=== PATIENT | female | born 1945 | race Caucasian/White ===

== ENCOUNTER 2017-05-09 08:56 | Outpatient (CLI) | payer MEDICARE ==
[2013-07-06 12:05] VITALS: BMI 26.3
[~2017-05-09 08:56] MED LIST: ASPIRIN325 MG PO; GLUCOPHAGE1000 MG PO; GLUCOTROL 5 MG T5 MG PO; LISINOPRIL2.5 MG PO; TOPROL XL25 MG PO; ZOCOR80 MG PO
== END 2017-05-09 11:10 ==
LOC: D.MAMMO 08:56
DX: Z12.31 Encounter for screening mammogram for malignant neoplasm of breast (principal)

== ENCOUNTER 2017-07-17 11:53 | Outpatient (CLI) | payer MEDICARE ==
--- NOTE | ~2017-07-17 | HEMODYNAMI ---
PATIENT:CISCO JEAN MEDICAL RECORD: [id number] : 45 LOCATION:[facility] ADMISSION DATE: 07/17/17 Generatedon:07/17/201714:57 Patient name: CISCO JEAN Patient #: [id number] SSN : : 1945 Date of study: 07/17/2017 Page: Of Hemodynamic Procedure Report Patient Data Patient Demographics Procedure consent was obtained First Name: CISCO Gender: Female Last Name: MIRANDA : 1945 Middle Initial: IRMA Age: 71 year(s) Patient #: [id number] Race: Unknown Additional ID: [id number] Contact details [address]: [address] [place] [address] State: [place] City: [place] Zip code: [address] Past Medical History Allergies: No known allergies Admission Admission Data Admission Date: 07/17/2017 Admission Time: 11:53 Admit Source: Other Lab Results Lab Result Date: 07/17/2017 Lab Result Time: 0:39 Biochemistry Name Units Result Min Max BUN mg/dl 18 --(---*)-- 7 18 Creatinine mg/dl 0.8 --(-*--)-- 0.6 1.3 CBC Name Units Result Min Max Hematocrit % 38.1 *-(----)-- 42 54 Hemoglobin g/dl 12.7 -*(----)-- 13.5 17.5 Procedure Procedure Types Cath Procedure Diagnostic Procedure LHC LHC w/Coronaries w/Grafts Miscellaneous Procedures Moderate Sedation up to 15 minutes Procedure Description Procedure Date Procedure Date: 07/17/2017 Procedure Start Time: 14:34 Procedure End Time: 14:55 Procedure Staff Name Function Isaak Verdin MD Performing Physician Jenifer Grajeda RT Scrub Harvey Balderas RT Monitor Sheela Aragon RN Nurse Meka Matias RT Monitor Procedure Data Cath Procedure Fluoroscopy Diagnostic fluoroscopy Total fluoroscopy Time: 5.2 time: 5.2 min min Diagnostic fluoroscopy Total fluoroscopy dose: 146 dose: 146 mGy mGy Contrast Material Contrast Material Type Amount (ml) Isovue 300 102 Entry Location Entry Primary Successful Side Size Upsize Upsize Entry Closure Succes sful Closure Location (Fr) 1 (Fr) 2 (Fr) Remarks Device Remarks Femoral Right 5 Fr Exoseal artery Estimated blood loss: 10 ml Diagnostic catheters Device Type Used For End Catheter Placement Cordis 5Fr JL 4.0 Procedure Catheter (MP) Cordis 5Fr 3DRC Catheter Procedure (MP) Diagnostic Infinity 5Fr Procedure AR MOD Catheter Diagnostic Infinity 5Fr Procedure AR 2 MOD catheter Diagnostic Infinity 5Fr Procedure IM catheter Cordis 5Fr Pigtail Ventriculography Catheter (MP) Procedure Complications No complications Procedure Medications Medication Administration Route Dosage Oxygen NC 2 l/min Lidocaine 2% added to field 20 Heparin Flush Bag added to field 2 bags (1000units/500ml NS) 0.9% NaCl I.V. 100 ml/hr Versed I.V. 1 mg Fentanyl I.V. 50 mcg Versed I.V. 1 mg Fentanyl I.V. 50 mcg Hemodynamics Rest HGB: 12.7 (g/dl) Heart Rate: 65 (bpm) Pressure Samples Time Site Value (mmHg) Purpose Heart Use Rate(bpm) 14:50 LV 122/1,18 Snapshot 70 14:51 AO 117/53(82) Pullback 72 14:51 LV 121/-4,15 Pullback 72 Gradients Valve Time Site 1 Site 2 Mean SEP/DFP Peak To Heart Use (mmHg) (sec/min) Peak Rate (mmHg) (bpm) Aortic 14:51 LV AO 6 20 4 72 121/-4,15 117/53(82) Calculations Valve P-P Mean Valve Index Valve Source Name Gradient Area Flow (cm2) Aortic 4 6 4 6 Snapshots Pre Cath Intra NCS Post Cath Vital Signs Time Heart Resp SPO2 etCO2 NIBP (mmHg) Rhythm Pain Sedation Rate (ipm) (%) (mmHg) Status Level (bpm) 14:17:12 65 15 100 16.5 153/78(130) NSR 0 (11) 10(A) , No pain 14:21:36 63 17 100 33.9 149/71(127) NSR 0 (11) 10(A) , No pain 14:25:56 62 18 100 29.3 145/71(121) NSR 0 (11) 10(A) , No pain 14:30:08 63 17 98 24.1 125/69(104) NSR 0 (11) 10(A) , No pain 14:34:22 71 16 100 33.1 129/74(110) NSR 0 (11) 10(A) , No pain 14:38:34 66 17 100 42.9 132/67(111) NSR 0 (11) 9(A) , No pain 14:42:54 64 16 100 18 130/64(99) NSR 0 (11) 9(A) , No pain 14:47:12 67 14 100 18 137/67(113) NSR 0 (11) 9(A) , No pain 14:51:26 69 16 99 15 116/62(98) NSR 0 (11) 9(A) , No pain 14:55:43 68 15 100 0 126/60(106) NSR 0 (11) 10(A) , No pain Medications Time Medication Route Dose Verified Delivered Reason Notes Effe ctiveness by by 14:13:07 Oxygen NC 2 Isaak Buffie used for l/min Lambert Aragon RN procedure 14:13:14 Lidocaine 2% added 20ml Isaak Isaak for local to vial Lambert Verdin MD anesthetic field 14:13:21 Heparin Flush added 2 Isaak Isaak used for Bag to bags Lambert Verdin MD procedure (1000units/500ml field NS) 14:13:31 0.9% NaCl I.V. 100 Isaak Buffie Per ml/hr Lambert Aragon RN physician 14:35:00 Versed I.V. 1 mg Isaak Buffie for Lambert Aragon RN sedation 14:35:06 Fentanyl I.V. 50 Isaak Buffie for mcg Lambert Aragon RN sedation 14:41:28 Versed I.V. 1 mg Isaak Buffie for Lambert Aragon RN sedation 14:41:34 Fentanyl I.V. 50 Isaak Buffie for mcg Lambert Aragon RN sedation Procedure Log Time Note 13:52:23 Informed consent obtained and on chart 13:52:45 Admit Source: Other 13:52:47 Diagnostic Cath status Elective 13:52:48 Sheela Aragon RN sent for patient. Start room use. 13:52:49 Time tracking: Regular hours 13:52:54 Plan of Care:Hemodynamics will remain stable., Cardiac rhythm will remain stable., Comfort level will be maintained., Respiratory function will remain adequate., Patient/ family verbilizes understanding of procedure., Procedure tolerated without complication., Recovers from procedure without complications.. 13:55:02 H&P Date Dictated: 06/25/2017 Within 30 days and on chart., H&P Addendum completed by physician on day of procedure. (MUST COMPLETE FOR ALL OUTPATIENTS). 13:57:07 Lab Result : Hemoglobin 12.7 g/dl 13:57:07 Lab Result : Hematocrit 38.1 % 13:57:07 Lab Result : BUN 18 mg/dl 13:57:07 Lab Result : Creatinine 0.8 mg/dl 14:03:19 Patient received from Pre/Post Procedure Room to [facility] 3 Alert and oriented. Tansferred to table in Supine position. 14:03:21 Warm blankets applied, and oleg hugger turned on for patient comfort. 14:03:21 Correct patient and procedure confirmed by team. 14:03:22 ECG and BP/O2 sat monitors applied to patient. 14:03:24 Pre-procedure instructions explained to patient. 14:03:24 Pre-op teaching completed and patient verbalized understanding. 14:03:34 Family in waiting room. 14:03:42 Patient allergic to No known allergies 14:03:44 Is the patient allergic to Iodine/contrast media? No. 14:13:07 Oxygen 2 l/min NC was administered by Sheela Aragon RN; used for procedure; 14:13:14 Lidocaine 2% 20ml vial added to field was administered by Isaak Verdin MD; for local anesthetic; 14:13:21 Heparin Flush Bag (1000units/500ml NS) 2 bags added to field was administered by Isaak Verdin MD; used for procedure; 14:13:31 0.9% NaCl 100 ml/hr I.V. was administered by Sheela Aragon RN; Per physician; 14:15:47 Is patient on blood thinner?No 14:15:49 Patient diabetic? Yes. 14:15:49 If diabetic: On Metformin? Yes 14:15:52 If on Metformin: Last Dose? 07/15/2017 14:15:55 Previous problem with sedation/anesthesia? No ? 14:15:55 Snore? No 14:15:56 Sleep apnea? No 14:15:57 Deviated septum? No 14:15:58 Opens mouth fully? Yes 14:15:58 Sticks out tongue? Yes 14:15:59 Vital chart was started 14:15:59 Airway obstruction? No ? 14:16:05 Dentures? Yes Partial in tight 14:16:08 Pre procedure: right dorsailis pedis pulse 1+ Palpable, but thready & weak; easily obliterated 14:16:10 Patient pain scale 0/10 ?. 14:16:28 IV patent on arrival in left hand with 0.9% NaCl at [facility]. 14:16:30 Lab results completed and on chart. 14:16:33 Right groin area was prepped with chlora-prep and draped in sterile fashion 14:16:34 Alarms reviewed by R. N. 14:16:35 Sharps counted by scrub and verified by R.N. 14:16:37 Use device set Femoral Dx 14:16:38 Tegaderm 4 x 4 opened to sterile field. 14:16:41 Acist Hand Control opened to sterile field. 14:16:41 Acist Manifold opened to sterile field. 14:16:46 Acist Syringe opened to sterile field. 14:16:46 Bag Decanter opened to sterile field. 14:16:47 Medline Cath Pack opened to sterile field. 14:16:47 Terumo 5Fr [place] Sheath opened to sterile field. 14:16:47 [facility] [place] 260cm J .035 wire opened to sterile field. 14:16:49 Diagnostic Infinity 5Fr Multipack catheter opened to sterile field. 14:18:53 Baseline sample Acquired. 14:18:57 Rhythm: sinus rhythm 14:18:58 Full Disclosure recording started 14:21:39 Zero performed for pressure channel P1 14:21:42 Zero performed for pressure channel P1 14:21:45 Zero performed for pressure channel P1 14:21:48 Zero performed for pressure channel P1 14:22:02 Physician arrived 14:22:02 --------ALL STOP TIME OUT------ 14:22:02 Final Timeout: patient, procedure, and site verified with staff and physician. All members of the team are in agreement. 14:22:04 Right groin site verified by team. 14:22:06 Physical assessment completed. ASA score P 2 - A patient with mild systemic disease as per Isaak Verdin MD. 14:22:08 Sedation plan: IV Moderate Sedation Versed, Fentanyl 14:34:05 Procedure started. 14:34:20 Local anesthetic to right femoral artery with Lidocaine 2% by Isaak Verdin MD.INITIAL ACCESS ONLY 14:35:00 Versed 1 mg I.V. was administered by Sheela Aragon RN; for sedation; 14:35:06 Fentanyl 50 mcg I.V. was administered by Sheela Aragon RN; for sedation; 14:36:04 A 5 Fr sheath was inserted into the Right Femoral artery 14:36:52 A Cordis 5Fr JL 4.0 Catheter (MP) was advanced over the wire and used for Procedure. 14:37:26 LCA angiography performed. 14:39:02 Catheter removed. 14:39:17 A Cordis 5Fr 3DRC Catheter (MP) was advanced over the wire and used for Procedure. 14:40:05 RCA angiography performed. 14:40:40 Catheter removed. 14:41:28 Versed 1 mg I.V. was administered by Sheela Aragon RN; for sedation; 14:41:34 Fentanyl 50 mcg I.V. was administered by Sheela Aragon RN; for sedation; 14:42:11 A Diagnostic Infinity 5Fr AR MOD Catheter was advanced over the wire and used for Procedure. 14:42:31 SVG to Diag angiography performed. 14:46:24 Catheter removed. 14:46:34 A Diagnostic Infinity 5Fr AR 2 MOD catheter was advanced over the wire and used for Procedure. 14:46:43 SVG to RCA angiography performed. 14:47:08 Catheter removed. 14:48:08 A Diagnostic Infinity 5Fr IM catheter was advanced over the wire and used for Procedure. 14:48:12 CROWLEY to LAD angiography performed. 14:48:54 Catheter removed. 14:50:17 A Cordis 5Fr Pigtail Catheter (MP) was advanced over the wire and used for Ventriculography. 14:51:13 EF : 50 % 14:51:28 Cordis 5Fr Exoseal opened to sterile field. 14:51:32 Catheter removed. 14:51:47 Sheath removed intact; hemostasis achieved with Exoseal to the Right Femoral artery. 14:51:50 Procedure ended.(Physican Out) 14:52:25 Fluoroscopy time 05.20 minutes. 14:52:31 Fluoroscopy dose: 146 mGy 14:52:31 Flurop Dose total: 146 14:52:35 Contrast amount:Isovue 300 102ml. 14:53:03 Insertion/operative site no bleeding no hematoma. 14:53:06 Post-op/insertion site Right Femoral artery dressed using a 4 x 4 and Tegaderm. 14:53:51 Post right femoral artery:stable 14:53:55 Post Procedure Pulses reassessed and unchanged 14:54:00 Post-procedure physical assessment completed. ASA score P 2 - A patient with mild systemic disease as per Isaak Verdin MD. 14:54:04 Estimated blood loss: 10 ml 14:54:05 Post procedure instruction explained to patient.Patient verbalizes understanding. 14:54:06 Patient needs reinforcement of post procedure teaching. 14:54:17 Procedure type changed to Cath procedure, Diagnostic procedure, LHC, LHC w/Coronaries w/Grafts, Miscellaneous Procedures, Moderate Sedation up to 15 minutes 14:54:18 Procedure and supply charges have been captured, reviewed, submitted and are correct. 14:54:56 Procedure Complication : No complications 14:55:00 Vital chart was stopped 14:55:07 See physician's report for complete and final results. 14:55:09 Report given to Pre/Post Procedure Room. 14:55:15 Patient transfered to Pre/Post Procedure Room with Stretcher. 14:55:17 Procedure ended. 14:55:17 Full Disclosure recording stopped 14:55:21 End room use (Document Last) Device Usage Item Name Manufacture Quantity Catalog Hospital Part Current Minimal Lo t# / Number Charge Number Stock Stock Serial# Code Tegaderm 4 1 [id number] 5 x 4 Acist Hand Acist 1 28174 805684 126224 [id number] 5 Control [employer] Inc Acist Acist 1 06367 881859 654486 759422 5 Manifold [employer] Inc Acist Acist 1 58439 655596 974722 251976 20 Syringe [employer] Inc Bag Microtek 1 2001S 244439 20383 397057 5 [employer] Medline Cardinal 1 [id number] 765449 73201 305387 5 Cath Pack Health Terumo 5Fr Terumo 1 [id number] 082130 728967 225821 [address] [place] [address] [facility] [place] 1 [id number] 140780 048985 461427 30 260cm J .035 wire Diagnostic Cardinal 1 [id number] 876528 46972 615403 30 [facility] 5Fr Multipack catheter Cordis 5Fr Cardinal 1 163255 5 JL 4.0 Health Catheter (MP) Cordis 5Fr Cardinal 1 014667 5 3DRC Health Catheter (MP) Diagnostic Cardinal 1 [id number] 885036 214529 281117 15 [facility] 5Fr AR MOD Catheter Diagnostic Cardinal 1 [id number] 560791 664887 821034 20 [facility] 5Fr AR 2 MOD catheter Diagnostic Cardinal 1 [id number] 754552 957009 730376 5 [facility] 5Fr IM catheter Cordis 5Fr Cardinal 1 [id number] 5 Pigtail Health Catheter (MP) Cordis 5Fr Cardinal 1 [id number] 583754 359978 385038 10 [facility] Game Face Hockey Signature Audit [place] Stage Time Signature Unsigned Intra-Procedure 07/17/2017 Meka Matias 2:57:40 PM RT(R) Signatures Monitor : Harvey Balderas RT Signature : Date : Time : Monitor : Meka Matias Signature : RT Date : Time : [address] [place] [address]
[2017-07-17 12:31] VITALS: BP 114/62; BMI 25.3
[2017-07-17 12:45] LABS: BASOPHILS 0.6 % (0-2); HEMATOCRIT 38.1 % (36.0-48.0); HEMOGLOBIN 12.7 g/dL (12-16); IMMATURE GRANULOCYTES 0.1 % (0-5); MCH 29.9 pg (26.0-34.0); MCHC 33.3 g/dL (31.0-37.0); MCV 89.6 fL (80.0-100.0); MEAN PLATELET VOLUME 9.9 fL (7.4-10.4); MONOCYTES 6.7 % (2-11); NEUTROPHILS 52.6 % (40-80); PLATELET COUNT 185 10x3/uL (130-400); RBC 4.25 10x6/uL (4.00-5.40); RDW 13.1 % (11.5-14.5); WBC 7.2 10x3/uL (4.8-10.8)
[2017-07-17 13:15] LABS: CALC OSMOLALITY 286 mosm/kg (275-300); CALCIUM 8.8 mg/dL (8.5-10.1); CARBON DIOXIDE 26.9 mmol/L (21.0-32.0); CHLORIDE - SERUM 104 mmol/L (98-107); CREATININE - SERUM 0.8 mg/dL (0.6-1.3); GLUCOSE 203 mg/dL (74-106); SODIUM 140 mmol/L (136-145); UREA NITROGEN 18 mg/dL (7-18); eGFR NON AFRICAN AMERICAN 75 mL/min (90-120)
--- NOTE | 2017-07-17 15:10 | NUR ---
1510 RECEIVED PT FROM SOFTWARE TESTING SPECIALIST, PT IS ALERT. DENIES ANY C/O CHEST PAIN OR NAUSEA. DRESSING TO RIGHT GROIN IS CDI, AREA IS SOFT AND NONTENDER. PEDAL PULSES PALPABLE, CAP REFILL IS BRISK. PO FLUIDS SERVED, FAMILY AT BEDSIDE, CALL LIGHT IN REACH.
--- NOTE | 2017-07-17 15:39 | NUR ---
1525 PT DENIES ANY C/O. DRESSING TO RIGHT GROIN IS CDI, AREA SOFT AND NONTENDER. PEDAL PULSES PALPABLE. CALL LIGHT IN REACH.
--- NOTE | 2017-07-17 16:00 | NUR ---
1600 PT DENIES ANY C/O. DRESSING CDI, AREA SOFT AND NONTENDER. VSS. CALL LIGHT IN REACH.
--- NOTE | 2017-07-17 17:00 | NUR ---
1700 HOB ELEVATED AND SANDWICH SERVED. DRESSING CDI, VSS. PT DENIES ANY C/O CHEST PAIN OR NAUSEA.
--- NOTE | 2017-07-17 17:19 | NUR ---
1720 PT HAS JOSÉ SANDWICH WITH NO C/O NAUSEA. IV DC'D WITH CATH INTACT. PT IS DRESSING FOR DC WITH HELP FROM HER . DRESSING CDI.
--- NOTE | 2017-07-17 17:41 | NUR ---
1735 ASSISTED PT TO THE BATHROOM VIA WC, PT VOIDED QS. PT ESCORTED TO PRIVATE AUTO VIA WC BY NURSE WITH DRIVING HER HOME.
--- NOTE | 2017-07-17 17:42 | NUR ---
1738 DC INSTRUCTIONS ALSO REVIEWED, WRITTEN COPIES TO PT. PT AND VERBALIZE UNDERSTANDING.
== END 2017-07-17 17:35 | disposition home or self-care (01) ==
LOC: D.CATH 11:53
PROVIDERS: Internal Medicine Cardiovascular Disease
DX: I25.119 Atherosclerotic heart disease of native coronary artery with unspecified angina pectoris (principal); Z95.1 Presence of aortocoronary bypass graft; R94.39 Abnormal result of other cardiovascular function study; Z01.812 Encounter for preprocedural laboratory examination

== ENCOUNTER → 2018-07-15 17:12 | Outpatient (CLI) | payer MEDICARE | END | disposition home or self-care (01) | LOC: D.MAMMO 16:15 | DX: Z12.31 Encounter for screening mammogram for malignant neoplasm of breast (principal) ==

== ENCOUNTER → 2019-01-07 08:00 | Outpatient (CLI) | payer MEDICARE ==
[~2019-01-07 08:00] MED LIST changes: +BASAGLAR K100 UNIT/1 SC
== END | disposition home or self-care (01) ==
LOC: D.HCCARDIO 01-06 08:30
PROVIDERS: ATTEND Internal Medicine Cardiovascular Disease
DX: I25.810 Atherosclerosis of coronary artery bypass graft(s) without angina pectoris (principal)

== ENCOUNTER 2019-02-05 06:53 | Outpatient (CLI) | payer MEDICARE ==
[~2019-02-05] VITALS: Ht 154.9 cm; Wt 61.4 kg
--- NOTE | ~2019-02-05 | HEMODYNAMI ---
PATIENT:CISCO JEAN MEDICAL RECORD: [id number] : 45 LOCATION:[facility] ADMISSION DATE: 02/05/19 Generatedon:02/05/20199:31 Patient name: CISCO JEAN Patient #: [id number] SSN : : 1945 Date of study: 02/05/2019 Page: Of Hemodynamic Procedure Report Patient Data Patient Demographics Procedure consent was obtained First Name: CISCO Gender: Female Last Name: MIRANDA : 1945 Middle Initial: IRMA Age: 73 year(s) Patient #: [id number] Race: Unknown Additional ID: [id number] Contact details [address]: [address] [place] [address] State: [place] City: [place] Zip code: [address] Past Medical History Allergies: No known allergies Admission Admission Data Admission Date: 02/05/2019 Admission Time: 6:53 Procedure Procedure Types Cath Procedure Diagnostic Procedure LHC LHC w/Coronaries w/Grafts Procedure Description Procedure Date Procedure Date: 02/05/2019 Procedure Start Time: 9:16 Procedure End Time: 9:30 Procedure Staff Name Function Isaak Verdin MD Performing Physician Gaby Stock RT Monitor Shane Howard RT Scrub Jaimee Thomas RN Nurse Procedure Data Cath Procedure Fluoroscopy Diagnostic fluoroscopy Total fluoroscopy Time: 4.3 time: 4.3 min min Diagnostic fluoroscopy Total fluoroscopy dose: 363 dose: 363 mGy mGy Contrast Material Contrast Material Type Amount (ml) Isovue 300 86 Entry Location Entry Primary Successful Side Size Upsize Upsize Entry Closure Succes sful Closure Location (Fr) 1 (Fr) 2 (Fr) Remarks Device Remarks Femoral Right 5 Fr Exoseal artery Estimated blood loss: 5 ml Diagnostic catheters Device Type Used For End Catheter Placement MULTIPACK JL 4.0 5Fr Procedure catheter DIAGNOSTIC AR MOD 5Fr Procedure Catheter ([id number]) DIAGNOSTIC IM 5Fr Procedure catheter ([id number]) MULTIPACK Pigtail 5 Fr Procedure catheter Procedure Complications No complications Procedure Medications Medication Administration Route Dosage 0.9% NaCl I.V. 100 ml/hr Oxygen etCO2 Nasal cannula 2 l/min Heparin Flush Bag added to field 2 bags (1000units/500ml NS) Lidocaine 2% added to field 20 Versed I.V. 2 mg Fentanyl I.V. 50 mcg Hemodynamics Rest Heart Rate: 60 (bpm) Pressure Samples Time Site Value (mmHg) Purpose Heart Use Rate(bpm) 9:26 LV 131/6,18 EDP 66 Gradients Valve Time Site Site Mean SEP/DFP Peak To Heart Use 1 2 (mmHg) (sec/min) Peak Rate (mmHg) (bpm) Aortic 9:26 LV AO 66 Snapshots Pre Cath Intra NCS Post Cath Vital Signs Time Heart Resp SPO2 etCO2 NIBP (mmHg) Rhythm Pain Sedation Rate (ipm) (%) (mmHg) Status Level (bpm) 8:43:06 62 12 100 40.9 150/72(118) NSR 0 (11) 10(A) , No pain 8:47:26 63 15 100 44.7 155/71(121) NSR 0 (11) 10(A) , No pain 8:51:48 67 13 100 29.8 148/65(111) NSR 0 (11) 10(A) , No pain 8:56:11 62 15 100 37.2 148/66(114) NSR 0 (11) 10(A) , No pain 9:00:31 61 15 100 32.8 144/61(122) NSR 0 (11) 10(A) , No pain 9:04:51 67 12 99 31 112/61(98) NSR 0 (11) 10(A) , No pain 9:09:05 64 11 99 38.7 128/55(98) NSR 0 (11) 10(A) , No pain 9:13:20 65 11 99 15 130/62(97) NSR 0 (11) 10(A) , No pain 9:17:37 59 12 100 22.3 129/64(111) NSR 0 (11) 9(A) , No pain 9:21:51 67 12 100 21.6 123/62(98) NSR 0 (11) 9(A) , No pain 9:26:05 66 13 99 33.5 118/65(93) NSR 0 (11) 9(A) , No pain 9:30:19 64 14 100 24.5 132/59(99) NSR 0 (11) 10(A) , No pain Medications Time Medication Route Dose Verified Delivered Reason Notes Effe ctiveness by by 8:44:30 0.9% NaCl I.V. 100 Isaak Jaimee used for ml/hr Lambert Thomas nursing assoc 8:44:37 Oxygen etCO2 2 Isaak Jaieme used for Nasal l/min Lambert Thomas procedure cannula RN 9:02:39 Heparin Flush added 2 Isaak Isaak used for Bag to bags Lambert Verdin MD procedure (1000units/500ml field NS) 9:02:47 Lidocaine 2% added 20ml Isaak Isaak for local to vial Lambert Verdin MD anesthetic field 9:16:42 Versed I.V. 2 mg Isaak Jaimee for Lambert Thomas sedation RN 9:16:48 Fentanyl I.V. 50 Isaak Jaimee for mcg Lambert Thomas sedation machine design teacher Log Time Note 8:08:09 Signed procedure consent form obtained from patient. 8:08:10 Diagnostic Cath status Elective 8:08:11 Time tracking: Regular hours (M-F 7:00 - 5:00) 8:08:15 Plan of Care:Hemodynamics will remain stable., Cardiac rhythm will remain stable., Comfort level will be maintained., Respiratory function will remain adequate., Patient/ family verbilizes understanding of procedure., Procedure tolerated without complication., Recovers from procedure without complications.. 8:12:18 H&P Date Dictated: 02/05/2019 Within 30 days and on chart., H&P Addendum completed by physician on day of procedure. (MUST COMPLETE FOR ALL OUTPATIENTS). 8:12:30 Patient allergic to No known allergies 8:27:10 Jaimee Thomas RN sent for patient. Start room use. 8:35:50 Patient received from Pre/Post Procedure Room to CCL 1 Alert and oriented. Tansferred to table in Supine position. 8:35:51 Warm blankets applied, and oleg hugger turned on for patient comfort. 8:35:52 Correct patient and procedure confirmed by team. 8:35:56 ECG and BP/O2 sat monitors applied to patient. 8:41:54 Vital chart was started 8:42:11 Rhythm: sinus rhythm 8:42:21 Full Disclosure recording started 8:42:22 Pre-procedure instructions explained to patient. 8:42:22 Pre-op teaching completed and patient verbalized understanding. 8:42:40 Family in patients room. 8:42:44 Patient NPO since Midnight. 8:42:45 Is the patient allergic to Iodine/contrast media? No. 8:42:47 Is patient on blood thinner?No 8:42:51 Patient diabetic? Yes. 8:42:52 If diabetic: On Metformin? Yes 8:42:54 If on Metformin: Last Dose? 02/04/2019 8:42:56 Previous problem with sedation/anesthesia? No ? 8:42:59 Snore? Yes 8:43:00 Sleep apnea? No 8:43:01 Deviated septum? No 8:43:02 Opens mouth fully? Yes 8:43:03 Sticks out tongue? Yes 8:43:06 Airway obstruction? No ? 8:43:09 Dentures? Yes IN 8:43:14 Pre procedure: right dorsailis pedis pulse 1+ Palpable, but thready & weak; easily obliterated 8:43:16 Patient pain scale 0/10 ?. 8:43:20 IV patent on arrival in left forearm with 0.9% NaCl at O. 8:43:22 Lab results completed and on chart. 8:43:33 Right groin area was prepped with chlora-prep and draped in sterile fashion 8:43:35 Alarms reviewed by R. N. 8:43:35 Sharps counted by scrub and verified by R.N. 8:43:45 Use device set Femoral Dx 8:44:03 ACIST Manifold ([id number]) opened to sterile field. 8:44:04 ACIST Hand Control (22462) opened to sterile field. 8:44:05 Tegaderm 4 x 4 (1626W) opened to sterile field. 8:44:07 ACIST Syringe (16576) opened to sterile field. 8:44:08 Bag Decanter (2002S) opened to sterile field. 8:44:08 Medline Cath Pack ([id number]) opened to sterile field. 8:44:10 DIAGNOSTIC WIRE .035 260cm J wire (836919) opened to sterile field. 8:44:11 DIAGNOSTIC Multipack 5Fr catheter set ([id number]) opened to sterile field. 8:44:13 SHEATH 5FR Brewer ([id number]) opened to sterile field. 8:44:30 0.9% NaCl 100 ml/hr I.V. was administered by Jaimee Thomas RN; used for procedure; 8:44:37 Oxygen 2 l/min etCO2 Nasal cannula was administered by Jaimee Thomas RN; used for procedure; 9:00:26 Baseline sample Acquired. 9:02:39 Heparin Flush Bag (1000units/500ml NS) 2 bags added to field was administered by Isaak Verdin MD; used for procedure; 9:02:47 Lidocaine 2% 20ml vial added to field was administered by Isaak Verdin MD; for local anesthetic; 9:10:58 Zero performed for pressure channel P1 9:15:10 --------ALL STOP TIME OUT------ 9:15:10 Final Timeout: patient, procedure, and site verified with staff and physician. All members of the team are in agreement. 9:15:11 Right groin site verified by team. 9:15:14 Maximum allowable Isovue 300 dose 300ml. Physician notified. (300ml for normal creatinines. For patients with creatinine of 1.7 or higher multiply weight(kg) x 5 divided by creatinine.) 9:15:17 Fire Safety Assessment: A--An alcohol-based skin anteseptic being used preoperatively., C--Open oxygen or nitrous oxide is being used., D--An ESU, laser, or fiber-optic light is being used. 9:15:20 Physical assessment completed. ASA score P 2 - A patient with mild systemic disease as per Isaak Verdin MD. 9:15:22 Sedation plan: IV Moderate Sedation Medication:Versed, Fentanyl 9:15:37 Procedure started. 9:16:05 Local anesthetic to right femoral artery with Lidocaine 2% by Isaak Verdin MD.INITIAL ACCESS ONLY 9:16:39 A 5 Fr sheath was inserted into the Right Femoral artery 9:16:42 Versed 2 mg I.V. was administered by Jaimee Thomas RN; for sedation; 9:16:48 Fentanyl 50 mcg I.V. was administered by Jaimee Thomas RN; for sedation; 9:17:02 A MULTIPACK JL 4.0 5Fr catheter was advanced over the wire and used for Procedure. 9:18:04 LCA angiography performed. 9:18:22 Catheter exchanged over wire. 9:18:48 A DIAGNOSTIC AR MOD 5Fr Catheter ([id number]) was advanced over the wire and used for Procedure. 9:20:45 SVG to OM angiography performed. 9:21:35 RCA angiography performed. 9:22:25 SVG to RCA angiography performed. 9:22:50 Catheter exchanged over wire. 9:23:45 A DIAGNOSTIC IM 5Fr catheter ([id number]) was advanced over the wire and used for Procedure. 9:24:37 CROWLEY to LAD angiography performed. 9:24:52 Catheter exchanged over wire. 9:25:09 A MULTIPACK Pigtail 5 Fr catheter was advanced over the wire and used for Procedure. 9:25:41 LV gram done using MOON 9:25:47 Injector settings: Ml/sec: 10, Volume: 20, 9:26:11 LV hemodynamics recorded. 9:26:25 EF : 55 % 9:26:41 Catheter removed. 9:26:42 EXOSEAL 5Fr (EX500) opened to sterile field. 9:27:49 Sheath removed intact; hemostasis achieved with Exoseal to the Right Femoral artery. 9:27:52 Procedure ended.(Physican Out) 9:28:50 Fluoroscopy time 04.30 minutes. 9:28:55 Flurop Dose total: 363 9:28:55 Fluoroscopy dose: 363 mGy 9:28:57 Contrast amount:Isovue 300 86ml. 9:28:59 Sharps counted by scrub and verified by R.N. 9:29:02 Post-op/insertion site Right Femoral artery dressed using a 4 x 4 and Tegaderm. 9:29:04 Post-procedure physical assessment completed. ASA score P 2 - A patient with mild systemic disease as per Isaak Verdin MD. 9:29:06 Post procedure rhythm: sinus rhythm 9:29:08 Estimated blood loss: 5 ml 9:29:09 Post procedure instruction explained to patient.Patient verbalizes understanding. 9:29:10 Patient needs reinforcement of post procedure teaching. 9:30:14 Procedure type changed to Cath procedure, Diagnostic procedure, LHC, LHC w/Coronaries w/Grafts 9:30:32 Procedure and supply charges have been captured, reviewed, submitted and are correct. 9:30:35 Procedure Complication : No complications 9:30:38 Vital chart was stopped 9:30:38 See physician's report for complete and final results. 9:30:40 Report given to Pre/Post Procedure Room. 9:30:42 Patient transfered to Pre/Post Procedure Room with Bed. 9:30:44 Procedure ended. 9:30:44 Full Disclosure recording stopped 9:30:47 End room use (Document Last) Device Usage Item Name Manufacture Quantity Catalog Hospital Part Current Minimal L ot# / Number Charge Number Stock Stock Serial# Code ACIST Acist 1 80558 [id number] 642821 637162 5 Manifold Medical (70658) Systems Inc ACIST Hand Acist 1 11946 759940 049655 888583 5 Control Medical (07388) Systems Inc Tegaderm 4 3M 1 1626W 967439 037147 004681 5 x 4 (1626W) ACIST Acist 1 04141 894378 784715 645649 20 Syringe Medical (06265) Systems Inc Bag Microtek 1 2001S 279401 67588 305284 5 Decanter Medical Inc. (2001S) Medline Medline 1 [id number] 969298 01707 667797 5 Cath Pack ([id number]) DIAGNOSTIC [facility] [place] 1 775764 672162 054093 490693 30 WIRE .035 260cm J wire (315643) DIAGNOSTIC Cardinal 1 GR8347 359844 83972 029689 30 Multipack Health 5Fr catheter set (QU3113) SHEATH 5FR Terumo 1 [id number] 483305 179267 066231 5 Brewer (ZCR847) MULTIPACK Cardinal 1 252571 5 JL 4.0 5Fr Health catheter DIAGNOSTIC Cardinal 1 [id number] 691233 806852 791016 15 AR MOD 5Fr Health Catheter (171933Z) DIAGNOSTIC Cardinal 1 [id number] 796719 272897 987168 5 IM 5Fr Health catheter (632450H) MULTIPACK Cardinal 1 [id number] 5 Pigtail 5 Health Fr catheter EXOSEAL 5Fr Cardinal 1 EX500 448482 719185 434986 10 (EX500) Health Signature Audit [place] Stage Time Signature Unsigned Intra-Procedure 02/05/2019 Gaby Stock 9:31:47 AM RT(R) Signatures Monitor : Gaby Stock Signature : RT Date : Time : [place] [id number] [facility] [place] [address]
[~2019-02-05 06:53] MED LIST changes: -BASAGLAR K100 UNIT/1 SC
[2019-02-05] MEDS ORDERED: BASAGLAR K100 UNIT/1 SC (07:27)
[2019-02-05 07:34] VITALS: BP 146/56; Ht 154.9 cm; Wt 61.4 kg
[2019-02-05 07:50] LABS: CALC OSMOLALITY 286 mosm/kg (275-300); CALCIUM 8.8 mg/dL (8.5-10.1); CARBON DIOXIDE 27.7 mmol/L (21.0-32.0); CHLORIDE - SERUM 105 mmol/L (98-107); CREATININE - SERUM 0.7 mg/dL (0.6-1.3); POTASSIUM - SERUM 4.1 mmol/L (3.5-5.1); SODIUM 142 mmol/L (136-145); UREA NITROGEN 15 mg/dL (7-18); eGFR NON AFRICAN AMERICAN 87 mL/min (90-120)
[2019-02-05 07:58] LABS: GLUCOSE 146 mg/dL (74-106)
[2019-02-05 08:01] LABS: BASOPHILS 0.7 % (0-2); EOSINOPHILS 4.3 % (0-7); HEMATOCRIT 36.9 % (36.0-48.0); HEMOGLOBIN 12.4 g/dL (12-16); IMMATURE GRANULOCYTES 0.3 % (0-5); LYMPHOCYTES 32.7 % (15-50); MCH 29.5 pg (26.0-34.0); MCHC 33.6 g/dL (31.0-37.0); MCV 87.9 fL (80.0-100.0); MEAN PLATELET VOLUME 9.8 fL (7.4-10.4); MONOCYTES 9.3 % (2-11); NEUTROPHILS 52.7 % (40-80); PLATELET COUNT 176 10x3/uL (130-400); RDW 13.2 % (11.5-14.5)
--- NOTE | 2019-02-05 10:00 | NUR ---
2L NC, NO RESP DISTRESS. RIGHT GROIN 5F EXOSEAL CDI, NO BLEEDING OR HEMATOMA NOTED. NO C/O PAIN OR NAUSEA. VSS. FAMILY AT BEDSIDE, CALL LIGHT WITHIN REACH.
--- NOTE | 2019-02-05 10:23 | NUR ---
TR BAND REMOVED WITH NO BLEEDING OR HEMATOMA. PATIENT LEFT VIA WC TO PARKING FOR TRANSPORT HOME NO DISTRESS
--- NOTE | 2019-02-05 10:30 | NUR ---
RESTING QUIETLY WITH EYES CLOSED. RIGHT GROIN 5F EXOSEAL CDI, NO BLEEDING OR HEMATOMA NOTED. DENIES ANY NEEDS. VSS. WILL CONTINUE TO MONITOR.
--- NOTE | 2019-02-05 10:50 | NUR ---
HOB ELEVATED 30 DEGREES. RIGHT GROIN 5F EXOSEAL CDI, NO BLEEDING NOTED. SIPPING ON DRINK AND EATING SANDWICH WITH NO C/O NAUSEA. VSS. WILL CONTINUE TO MONITOR.
--- NOTE | 2019-02-05 11:26 | NUR ---
LEFT PIV D/C'D WITH CATHETER INTACT, BAND AID TO SITE. RIGHT GROIN 5F EXOSEAL CDI, NO BLEEDING NOTED. UP TO BEDSIDE TO GET DRESSED. AMBULATED TO RESTROOM.
--- NOTE | 2019-02-05 11:35 | NUR ---
DISCHARGE INSTRUCTIONS GIVEN TO PT AND FAMILY, VERBALIZED UNDERSTANDING.
--- NOTE | 2019-02-05 11:44 | NUR ---
TAKEN OUT VIA WHEELCHAIR BY CATH ROAD BOSS. LEFT FACILITY WITH FAMILY AND ALL PERSONAL BELONGINGS.
== END 2019-02-05 11:44 | disposition home or self-care (01) ==
LOC: D.CATH 06:53
PROVIDERS: ATTEND Internal Medicine Cardiovascular Disease
DX: I25.119 Atherosclerotic heart disease of native coronary artery with unspecified angina pectoris (principal); Z95.1 Presence of aortocoronary bypass graft; Z01.812 Encounter for preprocedural laboratory examination

== ENCOUNTER → 2019-08-31 09:26 | Outpatient (CLI) | payer MEDICARE ==
[2019-02-05 07:34] VITALS: BMI 25.5
[~2019-08-31 09:26] MED LIST changes: +BASAGLAR K100 UNIT/1 SC
== END | disposition home or self-care (01) ==
LOC: D.HCCECHO 09:26 → D.HCCARDIO 10:00 → D.HCCECHO 10:00
PROVIDERS: ATTEND Internal Medicine Cardiovascular Disease
DX: I25.810 Atherosclerosis of coronary artery bypass graft(s) without angina pectoris (principal)

== ENCOUNTER 2019-12-10 08:00 | Outpatient (CLI) | payer MEDICARE ==
[2019-02-05 07:34] VITALS: BMI 25.5
== END 2019-12-10 23:59 | disposition home or self-care (01) ==
LOC: D.MAMMO 08:00
PROVIDERS: ATTEND Family Medicine
DX: Z12.31 Encounter for screening mammogram for malignant neoplasm of breast (principal)